=== PATIENT | male | born 1960 | race Hispanic/Latino ===

== ENCOUNTER 2024-07-24 06:00 | Day surgery (SDC) | payer OTHER ==
[~2024-07-24] VITALS: Ht 177.8 cm; Wt 99.8 kg
[2024-07-24] VITALS (11 sets, daily range): BP systolic 122–155; BP diastolic 75–86; PULSE 68–78; RESP 15–20; TEMP 97.1–97.9
[~2024-07-24 06:00] MED LIST: EMPA1TAB7 PO; LISI2.5T13 PO; SIMV-43 PO
[2024-07-24] MEDS: 0.9%NACL 1000ML 1,000 ML IV ONE (06:44)
[2024-07-24] MEDS ORDERED: proPOFol 10 MG/ML 20ML VIAL IV ONE (08:07)
== END 2024-07-24 10:00 | disposition home or self-care (01) ==
LOC: DAH 06:00 → ENDO 06:00
PROVIDERS: ATTEND Internal Medicine Gastroenterology
DX: Z12.11 Encounter for screening for malignant neoplasm of colon (principal); D12.0 Benign neoplasm of cecum; D12.2 Benign neoplasm of ascending colon; I10 Essential (primary) hypertension; E11.9 Type 2 diabetes mellitus without complications; E78.00 Pure hypercholesterolemia, unspecified; Z79.84 Long term (current) use of oral hypoglycemic drugs; Z79.899 Other long term (current) drug therapy; Z98.890 Other specified postprocedural states
CPT/HCPCS: 82948 ×2; 45380; 45385; J7030 ×2; J2704; A4620; A4215; A7002; J3490